=== PATIENT | male | born 1960 | race American Indian/Alaskan Native ===

== ENCOUNTER 2018-09-16 08:04 | Outpatient (CLI) | payer MEDICARE ==
[2018-09-16] MEDS ORDERED: XYLOCAINE TOPICAL 4% TP ONE ×2 (08:13→10:38)
[2018-09-16] MEDS ORDERED: AD OINTMENT TP ONE (08:13)
[2018-09-16] MEDS ORDERED: AD OINTMENT TP PRN (10:39)
== END 2018-09-16 08:05 | disposition home or self-care (01) ==
LOC: WOUND 08:04
PROVIDERS: ATTEND Surgery
DX: I87.313 Chronic venous hypertension (idiopathic) with ulcer of bilateral lower extremity (principal); L97.821 Non-pressure chronic ulcer of other part of left lower leg limited to breakdown of skin; L97.811 Non-pressure chronic ulcer of other part of right lower leg limited to breakdown of skin; I89.0 Lymphedema, not elsewhere classified; E66.9 Obesity, unspecified; Z68.39 Body mass index [BMI] 39.0-39.9, adult
CPT/HCPCS: 99213; A6250; G0463

== ENCOUNTER 2019-03-21 09:32 | Outpatient (CLI) | payer MEDICARE ==
--- NOTE | 2019-03-21 10:42 | Cat Scan Report ---
CT PELVIS WITHOUT CONTRAST History: Localized swelling, mass and lump. Technique: Helical CT without IV contrast. Sagittal and coronal reformatted images. Comparison: None. Findings: There is a predominantly fat density lesion arising from the right inguinal soft tissues which measures up to 11 x 15 x 23 cm. There is moderate nonspecific subcutaneous edema within this lesion and moderate overlying skin thickening. This appears to represent a lipoma containing unorganized edema. Focal cellulitis could be considered. There is no evidence for fluid collection or mass. Subcutaneous tissue in the left inguinal region is also slightly prominent and similar in appearance and measures 6 x 4 x 10 cm. There is no evidence for inguinal hernia. There are scattered slightly prominent bilateral inguinal lymph nodes. The largest lymph node on the right side measures 3.0 x 1.9 cm. The largest lymph node on the left side measures 3.2 x 2.1 cm. There is moderate diverticulosis of the distal colon. The visualized bowel loops are unremarkable. The appendix is not confidently identified. The bladder distal ureters and prostate gland are unremarkable The bony pelvis is intact. A small umbilical hernia containing fat is noted. IMPRESSION: Prominent and edematous subcutaneous fat in both inguinal regions, right greater than left. See above. This presumably represents bilateral lipomas. Superimposed cellulitis is difficult to exclude on noncontrast CT. No evidence for soft tissue mass, abscess or hernia. Slightly prominent bilateral inguinal lymph nodes which could be reactive in nature. Sigmoid diverticulosis. Umbilical hernia containing fat.
== END 2019-03-21 09:33 | disposition home or self-care (01) ==
LOC: CT 09:32
PROVIDERS: ATTEND Surgery
DX: K57.30 Diverticulosis of large intestine without perforation or abscess without bleeding (principal); K42.9 Umbilical hernia without obstruction or gangrene; E66.9 Obesity, unspecified
CPT/HCPCS: 72192

== ENCOUNTER 2019-05-10 05:33 | Day surgery (SDC) | payer MEDICARE ==
[~2019-05-10 05:33] MED LIST: LACTATED RINGERS 1,000 ML IV SCH; NEURONTIN PO SCH; TYLENOL PO NR; ceFAZolin 3 GM in NACL 0.9% 100 ML IV NR
[2019-05-10] MEDS ORDERED: LACTATED RINGERS 1,000 ML IV SCH (06:00)
[2019-05-10] MEDS ORDERED: ceFAZolin 3 GM in NACL 0.9% 100 ML IV NR (06:00)
[2019-05-10] MEDS ORDERED: NEURONTIN PO SCH (06:00)
[2019-05-10] MEDS ORDERED: TYLENOL PO ONE (06:00)
[2019-05-10] MEDS ORDERED: NACL BACTERIOSTATIC INFILTRATI ONE (06:36)
[2019-05-10] MEDS ORDERED: XYLOCAINE MPF 2% ONE (07:06)
--- NOTE | 2019-05-10 07:06 | Anesthesia Day of Surgery ---
Anesthesia Day of Surgery - Day of Surgery Patient Examined: Yes Patient H&P Reviewed: Yes Patient is NPO: Yes Beta Blockers: Yes Cardiac Clearance: Yes
[2019-05-10] MEDS ORDERED: SUBLIMAZE ONE (07:07)
[2019-05-10] MEDS ORDERED: DIPRIVAN 10 MG/ML IV ONE ×2 (07:07→07:46)
--- NOTE | 2019-05-10 07:15 | Short Stay Summary ---
Short Stay Documentation Date of service: 05/10/19 - History H&P: obtained from office - Allergies and Medications Current Medications: Allergies No Known Allergies Allergy (Verified 05/03/19 14:40) Home Medications Medication Instructions Recorded Confirmed Last Taken Type Apixaban [Eliquis] 5 mg PO Q12HR #60 tablet 10/11/18 05/03/19 Unknown Rx Carvedilol [Coreg] 6.25 mg PO BID #60 tablet 10/11/18 05/03/19 Unknown Rx hydrALAZINE [Apresoline TAB] 10 mg PO Q12HR #60 tablet 10/11/18 05/03/19 Unknown Rx Furosemide [Lasix TAB] 80 mg PO DAILY 05/03/19 05/03/19 Unknown History Active Medications Celecoxib (Celebrex) 200 mg PO PREOP NR Stop: 05/10/19 23:59 Gabapentin (Neurontin) 900 mg PO PREOP STACEY Lactated Ringer's (Lactated Ringers) 1,000 mls @ 42 mls/hr IV DIRECT STACEY Cefazolin Sodium 3 gm/ Sodium (Chloride) 100 mls @ 100 mls/30 min IV PREOP NR; Protocol Stop: 05/10/19 23:59 - Physical exam General appearance: no acute distress Integumentary: no rash, no abnormal pigmentation HEENT: Atraumatic Lungs: Normal air movement Neurological: Normal speech - Brief post op/procedure progress note Date of procedure: 05/10/19 (dictation: [id number]) Pre-op diagnosis: bilateral groin soft tissue masses Post-op diagnosis: same Procedure: excision of bilateral groin soft tissue masses IVF - 500cc EBL 100cc Anesthesia: GETA Findings: very large soft tissue masses in the subQ layer. no involvement with deep tissue layer Right - [id number] Left - [id number] Surgeon: EVY BARRETO Estimated blood loss: 50-100ml Pathology: list (bilateral groin soft tissue masses) Specimen disposition: to lab Condition: stable - Hospital course Hospital course: uneventful - Disposition Condition at discharge: Stable Disposition: DC-01 TO HOME OR SELFCARE Short Stay Discharge Plan Wound: open to air, keep clean and dry, drain care as instructed (record daily output of drain. Keep drain on bulb suction. Secure drain to clothing or keep in pocket. Do not let drain site get wet. ) Additional Instructions: Post Operative Instructions No driving until cleared by surgeon. May shower tomorrow. Pat dry the wound or wounds. After surgery, start with a light diet. Consider having a liquid diet first. If you do well, you can advance to a regular diet as you feel comfortable. Apply an ice pack to the wound or wounds for 10-20 minutes at a time. Do this at least 4-5 times a day. You can do it more if he would like. Alternate the use of ibuprofen and Tylenol for the first 2 days. I want you to take these on a scheduled basis. Take 600 mg of ibuprofen every 6 hours. Take 500 mg of Tylenol every 6 hours. You should alternate these 2 medicines. In other words, beginning with the ibuprofen. After 3 hours, take the Tylenol. Keep alternating the 2 drugs every 3 hours. Do this on a scheduled basis for the first 2 days. After that, you can take them as needed. It is very important that you use the prescription pain medicine only for very severe pain. Do not take the prescription medicine before you try using the ibuprofen and Tylenol. We will call you in a couple of days to see how youre doing. If you have any questions or concerns, always feel free to call the clinic at any time. Follow up with: JENNIFER WOMACK MD [Primary Care Provider] - 7 Days EVY BARRETO MD [Staff Physician] - 14 Days Forms: Outpatient Surgery DC Inst. Prescriptions: HYDROcodone/APAP 5-325 [[place] 5/325] 1 each PO Q6HR PRN #20 tablet PRN Reason: Pain , Severe (7-10)
--- NOTE | 2019-05-10 07:15 | Anesthesia Consultation ---
Anesthesia Consult and Med Hx Date of service: 05/10/19 - Airway Anesthetic Teeth Evaluation: Good ROM Head & Neck: Adequate Mental/Hyoid Distance: Adequate Mallampati Class: Class II Intubation Access Assessment: Probably Good - Pre-Operative Health Status ASA Pre-Surgery Classification: ASA3 Proposed Anesthetic Plan: General - Pulmonary Hx Smoking: No SOB: Yes (SOB) Hx Sleep Apnea: Yes (DX SLEEP APNEA WITH CPAP USE.) - Cardiovascular System Hx Hypertension: Yes (X 1 YR) Hx Heart Attack/AMI: No Hx Cardia Arrhythmia: Yes (A-Fib; CHF; Hx SVT; dilated cardiomyopathy EF 40-45%) - Central Nervous System Hx Seizures: Yes (? X1- NO MEDS NOW) - Gastrointestinal Hx Ulcer: Yes - Endocrine Hx Renal Disease: Yes (ARF in the past requiring HD) - Hematic Hx Sickle Cell Disease: No - Other Systems Hx Cancer: No Hx Obesity: Yes
[2019-05-10] MEDS ORDERED: MARCAINE-EPI 0.5%-1:200,000 INFILTRATI ONE (07:16)
[2019-05-10] MEDS ORDERED: XYLOCAINE 1% 20 mL ONE (07:16)
[2019-05-10] MEDS ORDERED: SUBLIMAZE IV PRN (07:22)
[2019-05-10] MEDS ORDERED: ZOFRAN IV PRN (07:22)
[2019-05-10 07:48] LABS: INR 1.28 (0.87-1.13)
[2019-05-10 07:49] LABS: Partial Thromboplastin Time 33.2 Sec. (24.2-36.6)
[2019-05-10] MEDS ORDERED: DECADRON ONE (08:06)
[2019-05-10] MEDS ORDERED: ZOFRAN ONE (08:06)
[2019-05-10] MEDS ORDERED: XYLOCAINE 1% 20 mL INFILTRATI ONE (08:10)
[2019-05-10] MEDS ORDERED: MARCAINE 0.5% INFILTRATI ONE (08:10)
[2019-05-10] MEDS ORDERED: NACL 0.9% IR ONE (08:10)
[2019-05-10 11:42] VITALS: BP 142/85
--- NOTE | 2019-05-10 13:08 | Post Anesthesia Evaluation ---
- Post Anesthesia Evaluation Patient Participated: Yes Airway Patent: Yes Stable Respiratory Function: Yes Nausea/Vomiting: No Temp > 96.8F: Yes Pain Manageable: Yes Adequeate Hydration: Yes Anesthesia Complications: No
--- NOTE | 2019-05-10 18:24 | Operative Report ---
PREOPERATIVE DIAGNOSIS: Bilateral large soft tissue masses in the groins. POSTOPERATIVE DIAGNOSIS: Bilateral large soft tissue masses in the groins. PROCEDURE: Excision of bilateral groin soft tissue masses. ATTENDING PHYSICIAN: Jessica Pruett MD. ANESTHESIA: General. ESTIMATED BLOOD LOSS: 100 mL. FLUIDS: 500 mL. SPECIMENS: Right soft tissue mass was 40 x 13 x 15 cm. The left was 22 x 8 x 10 cm. Specimens as listed above. DRAINS: A 19-Belgian round drain in the right groin. COMPLICATIONS: None. DISPOSITION: Stable, transported to recovery. INDICATIONS: This is a 58-year-old male who has had a long history of very large soft tissue masses in both groins, right greater than left. This causes him a significant amount of discomfort and difficulty walking and performing adequate hygiene. The patient is estimated need for excision. Procedure, risks and benefits were explained to the patient. Risks included but were not limited to infection, bleeding, pain, injury to surrounding structures, possible need for further procedures in the future. The patient understood and consented. Clearance was obtained from Cardiology. The patient's Eliquis has been held since Wednesday. OPERATIVE NOTE: The patient was brought to the operating room and placed on the table in supine position. After adequate general anesthesia was established, the patient was placed in a frog leg position. Pressure points were padded. Legs were secured. We initially began by taping the scrotum and left groin mass to the left so that we would have adequate exposure of the right side. Sterile prep and drape was performed. Antibiotics had been given. SCDs were in place. Time-out had been called. The mass base was identified and marked with a skin marker using electrocautery. I then divided the skin in an elliptical manner. The patient had very large superficial veins that most likely dilated as a result of this large mass. These were controlled with a combination of electrocautery, suture ligation and LigaSure division. We carefully proceeded through the subcutaneous tissue. Once we had gone through the skin, we used the LigaSure device for majority of the fat and blood vessel division. We did get into a superficial group of lymph nodes. This was additionally identified as we went through them. I went then a little bit deeper to get the lymph nodes that we had initially transected to have a complete specimen. I checked a few times to make sure that none of the vessels that we were dividing were actually in fact much deeper femoral vessels. They all appeared to be superficial veins. At no point did we encounter the artery or the femoral nerve that fascia was completely intact, but I did check a few times just to make sure of my location as the patient was a morbidly obese gentleman. Once we had divided the subcutaneous tissue, which took more than an hour to get through all the subcutaneous tissue and blood vessels. We then passed a specimen off the table in sterile manner after we have measured it. Hemostasis was achieved with electrocautery and the LigaSure device. Wound was thoroughly irrigated. Surgicel was placed at the base and then a 19-Belgian drain was placed at the base of the wound. Subcutaneous tissue was closed with interrupted 2-0 Vicryl sutures. The superficial subcutaneous tissue was then cleaned again and skin was closed with jeni. The skin was cleaned and dried, dressings were placed. We then moved the scrotum and penis to the right side, did another prep and drape sterilely and proceeded to do the same procedure on the left, here the mass was smaller. The exact same procedure was done; however, the dissection was a bit easier. Once the mass was excised, it was measured and then passed off table in sterile fashion. No drain I felt was required on this side. We closed the subcutaneous tissue with a running 2-0 Vicryl suture. Skin was cleaned and dried. Skin wound was closed with jeni. Dressings were placed. The patient tolerated the procedure well. There were no complications. Extensive dissection was required on the right side to get out the 40-cm mass that was in the groin. All counts were correct at the end of the case. The patient tolerated the procedure well. There were no complications. JOB# [id number] KANU/SOCORRO
== END 2019-05-10 12:45 | disposition home or self-care (01) ==
LOC: OR 05:33
PROVIDERS: ATTEND Surgery
DX: M79.89 Other specified soft tissue disorders (principal); L92.8 Other granulomatous disorders of the skin and subcutaneous tissue; L30.8 Other specified dermatitis; L03.314 Cellulitis of groin; L72.0 Epidermal cyst; E66.01 Morbid (severe) obesity due to excess calories; G47.33 Obstructive sleep apnea (adult) (pediatric); I13.2 Hypertensive heart and chronic kidney disease with heart failure and with stage 5 chronic kidney disease, or end stage renal disease; N18.6 End stage renal disease; I50.21 Acute systolic (congestive) heart failure; I48.91 Unspecified atrial fibrillation; Z86.718 Personal history of other venous thrombosis and embolism; Z99.2 Dependence on renal dialysis; Z91.81 History of falling; Z79.899 Other long term (current) drug therapy; Z68.43 Body mass index [BMI] 50.0-59.9, adult; Z90.5 Acquired absence of kidney; Z86.711 Personal history of pulmonary embolism; Z98.890 Other specified postprocedural states; Z82.49 Family history of ischemic heart disease and other diseases of the circulatory system
CPT/HCPCS: 27043; 36415; 84132; 85610; 85730; 88307; J0690; J1100; J2405; J2704; J3010; J7120; 88304; 88312; 88313; 88342